=== PATIENT | female | born 1980 | race Caucasian/White ===

== ENCOUNTER 2018-03-04 16:34 | Emergency (ER) | payer OTHER ==
[2018-03-04] MEDS ORDERED: ACETAMINOPHEN 500 MG TABLET (FP) PO ONE (17:09)
--- NOTE | 2018-03-04 17:09 | PDOC ---
Rapid Medical Evaluation Chief Complaint: Headache Time Seen by Provider: 03/04/18 17:03 Medical Evaluation: Allergies Allergy/AdvReac Type Severity Reaction Status Date / Time No Known Allergies Allergy Verified 11/19/13 07:25 03/04/18 17:06 c/o b/l ear pain x 3 and headache/dizziness x 1 day. has nasal congestion. denies chest pain, nausea, vomiting. Pe: patient alert ox3. A: headache; dizziness P: urine Discharge Disposition - Diagnosis Dizziness Headache Qualifiers: Headache type: unspecified Headache chronicity pattern: unspecified pattern Intractability: not intractable Qualified Code(s): R51 - Headache - Referrals Referrals: Poonam Macario [Primary Care Provider] - - Patient Instructions - Post Discharge Activity
[2018-03-04 17:10] VITALS: BP 122/77; PULSE 96; TEMP 98.6; BMI 24.7
--- NOTE | 2018-03-04 17:29 | PDOC ---
History of Present Illness - General Chief Complaint: Ear Problem Stated Complaint: Ear Problem Time Seen by Provider: 03/04/18 17:03 History Source: Patient Exam Limitations: No Limitations - History of Present Illness Initial Comments: 03/04/18 17:34 Patient came for evaluation of worsening cough, runny nose, and frontal headache pain. States had onset of cold symptoms approximately 3 days ago and has used one round of NyQuil 2 days ago. Has not used any medication since. Denies fever, denies purulent drainage from nose, states cough is moist but nonproductive. Timing/Duration: reports: just prior to arrival, getting worse Severity: reports: mild, moderate Associated Symptoms: reports: chest pain/soreness, cough, earache, nasal congestion, nasal drainage Past History - Travel Traveled outside of the country in the last 30 days: No Close contact w/someone who was outside of country & ill: No - Past Medical History Allergies/Adverse Reactions: Allergies Allergy/AdvReac Type Severity Reaction Status Date / Time No Known Allergies Allergy Verified 03/04/18 17:04 Home Medications: Ambulatory Orders Cetirizine HCl/Pseudoephedrine [Allergy+Congestion Relf-D Tab] 1 each PO DAILY # 30 tab 03/04/18 COPD: No Other medical history: DENIES. - Immunization History Immunization Up to Date: Yes - Suicide/Smoking/Psychosocial Hx Smoking History: Never smoked Hx Alcohol Use: No Substance Use Type: None Review of Systems - Review of Systems Able to Perform ROS?: Yes Is the patient limited [place] proficient: Yes Constitutional: Yes: Symptoms Reported, See HPI, Fever, Loss of Appetite, Malaise HEENTM: Yes: Symptoms Reported, See HPI, Nose Congestion, Throat Pain Respiratory: Yes: Symptoms reported, See HPI, Cough. No: Wheezing Musculoskeletal: Yes: Symptoms Reported Neurological: Yes: Symptoms reported, See HPI, Headache All Other Systems: Reviewed and Negative *Physical Exam - Vital Signs Last Vital Signs Temp Pulse Resp BP Pulse Ox 98.6 F 96 H 18 122/77 97 03/04/18 17:05 03/04/18 17:05 03/04/18 17:05 03/04/18 17:05 03/04/18 17:05 - Physical Exam General Appearance: Yes: Nourished, Appropriately Dressed, Apparent Distress, Mild Distress HEENT: positive: AMISH, TMs Normal, Nasal Congestion, Rhinorrhea Neck: positive: Supple. negative: Tender, Lymphadenopathy (R), Lymphadenopathy (L) Respiratory/Chest: positive: Lungs Clear, Normal Breath Sounds Progress Note - Progress Note Progress Note: Upper respiratory infection, mild with congested sinuses. We will encourage over -the-counter and old fashion treatments in addition to antihistamine with a decongestant component as patient suffers from mold ALLERGIES also. Will follow- up with PMD *DC/Admit/Observation/Transfer Diagnosis at time of Disposition: URI with cough and congestion - Discharge Dispostion Disposition: HOME Condition at time of disposition: Stable Decision to Admit order: No - Referrals Referrals: Poonam Macario [Primary Care Provider] - - Patient Instructions Printed Discharge Instructions: DI for Viral Upper Respiratory Infection -- Adult Additional Instructions: Rest, drink lots of fluids: Teas, water, soups, Pedialyte Saltwater gargles Steamy showers/seem to face break up mucus Avoid contact with others until fevers and cough resolved Lots of handwashing and good hygiene Continue [id number] medications for symptomatic relief Tylenol or Motrin for fever and pain Followup with private physician in one to 2 days as needed Return to emergency department for worsened symptoms, fevers, dehydration - Post Discharge Activity Forms/Work/School Notes: Back to Work
[2018-03-04] MEDS ORDERED: ACETAMINOPHEN 325 MG TABLET (FP) ONE (17:44)
== END 2018-03-04 17:49 | disposition home or self-care (01) ==
LOC: JERFT 16:34
DX: R51 Headache (principal); R42 Dizziness and giddiness
CPT/HCPCS: 99281-25

== ENCOUNTER 2020-08-15 15:14 | Emergency (ER) | payer OTHER ==
[2020-08-15 15:18] VITALS: BP 117/73; PULSE 116; TEMP 98.2; BMI 25.2
[2020-08-15] MEDS ORDERED: SODIUM CHLORIDE 1,000 ML IV STA (15:32)
[2020-08-15] MEDS ORDERED: ACETAMINOPHEN 1000 MG/100 ML VIAL (NON FORMULARY) IVPB ONE (15:33)
[2020-08-15] MEDS ORDERED: ACETAMINOPHEN INJECTION 100 ML IVPB ONE (16:33)
[2020-08-15 17:22] LABS: BASO % 0.3 % (0-2.0); EOS % 0.1 % (0-4.5); HEMATOCRIT 42.9 % (32.4-45.2); HEMOGLOBIN 14.5 GM/dL (10.7-15.3); LYMPH % 7.9 % (8-40); MCHC 33.7 g/dl (32.0-36.0); MEAN CELL VOLUME 91.9 fl (80-96); MEAN PLT VOLUME 10.4 fl (7.5-11.1); NEUT % 86.7 % (42.8-82.8); PLATELET COUNT 139 K/MM3 (134-434); RBC 4.67 M/mm3 (3.60-5.2); RDW 12.6 % (11.6-15.6); WHITE BLOOD COUNT 11.2 K/mm3 (4.0-10.0)
[2020-08-15 17:38] LABS: CALCIUM 9.1 mg/dL (8.5-10.1)
[2020-08-15 17:40] LABS: ALBUMIN 3.8 g/dl (3.4-5.0); BLOOD UREA NITROGEN 8.8 mg/dL (7-18)
[2020-08-15 17:42] LABS: CREATININE 0.7 mg/dL (0.55-1.3)
[2020-08-15 17:44] LABS: BILIRUBIN,TOTAL 0.6 mg/dL (0.2-1); TOT PROT 7.6 g/dl (6.4-8.2)
[2020-08-15 19:41] LABS: EPI CELLS 2 /uL (0-25.1); HCG,QUALITATIVE URINE Negative; HYALINE CASTS 2 /uL (0-3.1); PH,URINE 6.5 (5.0-8.0); URINE APPEARANCE CLOUDY; URINE BACTERIA >9,000 /uL (0-1359); URINE BILIRUBIN NEGATIVE (NEGATIVE); URINE COLOR YELLOW; URINE GLUCOSE (UA) NEGATIVE (NEGATIVE); URINE KETONE NEGATIVE (NEGATIVE); URINE LEUK ESTERASE 3+ (NEGATIVE); URINE NITRITE NEGATIVE (NEGATIVE); URINE PROTEIN TRACE (NEGATIVE); URINE RBC 24 /uL (0-23.9); URINE UROBILINOGEN 0.2 mg/dL (0.2-1.0); URINE WBC 2343 /uL (0-25.8)
== END 2020-08-15 20:18 | disposition home or self-care (01) ==
LOC: JER 15:14
PROC: 3E0333Z Introduction of Anti-inflammatory into Peripheral Vein, Percutaneous Approach (ICD-10-PCS; principal; 2020-08-15)
PROC: 3E0337Z Introduction of Electrolytic and Water Balance Substance into Peripheral Vein, Percutaneous Approach (ICD-10-PCS; 2020-08-15)
DX: N10 Acute pyelonephritis (principal)
CPT/HCPCS: 36415; 76775-TC; 80053; 81003; 84703; 85025; 87086; 87186; 87491; 87591; 99284-25; J0131

== ENCOUNTER 2022-09-02 08:02 | Emergency (ER) | payer OTHER ==
[2022-09-02 08:13] VITALS: BP 114/69; PULSE 65; RESP 18; TEMP 97.9; BMI 24.5
[2022-09-02] MEDS ORDERED: FAMOTIDINE 20 MG/50 ML IVPB 20 MG/50 ML MG IVPB ONE ×2 (09:04→09:18)
[2022-09-02] MEDS ORDERED: MAG HYDROX/AL HYDROX/SIMETH 30 ML UNIT-DOSE CUP PO ONE (09:04)
[2022-09-02] MEDS ORDERED: SODIUM CHLORIDE 0.9% 500 ML INFUS.BAG IV ONE (09:04)
[2022-09-02] MEDS ORDERED: MAG HYDROX/AL HYDROX/SIMETH 30 ML UNIT-DOSE CUP ONE (09:18)
[2022-09-02 10:00] LABS: BASO % 0.4 % (0-2.0); EOS % 0.4 % (0-4.5); HEMATOCRIT 41.6 % (32.4-45.2); HEMOGLOBIN 14.5 GM/dL (10.7-15.3); LYMPH % 24.6 % (8-40); MCH 31.2 pg (25.7-33.7); MCHC 34.8 g/dl (32.0-36.0); MEAN CELL VOLUME 89.6 fl (80-96); MONO % 6.3 % (3.8-10.2); NEUT % 68.3 % (42.8-82.8); PLATELET COUNT 142 10^3/uL (134-434); RBC 4.65 M/mm3 (3.60-5.2); RDW 12.9 % (11.6-15.6); WHITE BLOOD COUNT 7.7 K/mm3 (4.0-10.0)
[2022-09-02 10:27] LABS: POTASSIUM 3.9 mmol/L (3.5-5.1)
[2022-09-02 10:30] LABS: ALBUMIN 3.8 g/dl (3.4-5.0); BLOOD UREA NITROGEN 15.9 mg/dL (7-18); CALCIUM 8.6 mg/dL (8.5-10.1)
[2022-09-02 10:33] LABS: CREATININE 0.6 mg/dL (0.55-1.3)
[2022-09-02 10:34] LABS: BILIRUBIN,TOTAL 0.5 mg/dL (0.2-1)
[2022-09-02 10:35] LABS: TOT PROT 7.1 g/dl (6.4-8.2)
[2022-09-02 12:30] LABS: PH,URINE 6.5 (5.0-8.0); URINE APPEARANCE CLEAR; URINE BILIRUBIN NEGATIVE (NEGATIVE); URINE COLOR YELLOW; URINE GLUCOSE (UA) NEGATIVE (NEGATIVE); URINE KETONE NEGATIVE (NEGATIVE); URINE LEUK ESTERASE NEGATIVE (NEGATIVE); URINE NITRITE NEGATIVE (NEGATIVE); URINE PROTEIN NEGATIVE (NEGATIVE); URINE UROBILINOGEN 0.2 mg/dL (0.2-1.0)
[2022-09-02 12:33] LABS: HCG,QUALITATIVE URINE Negative
== END 2022-09-02 12:53 | disposition home or self-care (01) ==
LOC: JER 08:02
PROC: 3E033GC Introduction of Other Therapeutic Substance into Peripheral Vein, Percutaneous Approach (ICD-10-PCS; principal; 2022-09-02)
DX: R10.13 Epigastric pain (principal); R05.9 Cough, unspecified
CPT/HCPCS: 36415; 71046-TC-FY; 76705-TC; 80053; 81003; 83690; 84703; 85025; 99285-25